=== PATIENT | female | born 1970 | race Asian ===

== ENCOUNTER 2024-01-17 11:42 | Day surgery (SDC) | payer BC, SELFPAY ==
[2024-01-11 08:32] VITALS: BMI 19.4
[2024-01-17] VITALS (11 sets, daily range): BP systolic 121–193; BP diastolic 82–115; PULSE 79–102; RESP 13–21; TEMP 36.1–36.2; O2SAT 85–100; BMI 19.4
--- NOTE | 2024-01-17 | PATH_ITS ---
[facility] Accession Number: [id number] No. of containers..02 Tissue . 01 Material submitted: . PART A: ectocervix - ECTOCERVIX PART B: endocervix - ENDOCERVICAL TOP HAT . 01 Diagnosis: A. ECTOCERVIX, LEEP BIOPSY: High-grade squamous intraepithelial lesion/NELSON 2-3 is present in the 12 to 3, 6 to 9, and 9 to 12 o'clock quadrants with gland extension. Low-grade squamous intraepithelial lesion/NELSON-1 is present in the 3 to 6 and 6 to 9 o'clock quadrants. The apparent endocervical margin is negative for dysplasia. The apparent ectocervical margin is focally involved by low-grade squamous intraepithelial lession/NELSON-1 in the 9 to 12 and 3 to 6 o'clock quadrants and is involved by high-grade squamous intraepithelial lesion / NELSON-2 in the 9 to 12 and 12 to 3 o'clock quadrants; electrocautery artifact is present and focally obscures. . B. ENDOCERVICAL TOP HAT: Endocervical tissue; negative for significant atypia. [facility] 01/21/2024 1542 Local . 01 Comment: The biopsy results correlate with Pap smear [id number]. . 01 Electronically signed: . Ashley Salcedo MD, Pathologist NPI- [id number] . 01 Gross description: . A. Received in formalin with two patient identifiers and ectocervix, stitch at 12, is an oriented circular fragment of cervix with a suture designating 12 o'clock per the requisition (1.7 cm from 12-6, 1.5 cm from 3-9, and 1.0 cm thick). The ectocervix is bales to finely granular. The os is slit-like and measures 0.5 cm in diameter. The endocervical margin is inked orange while the remaining stromal margins are inked blue. The specimen is radially sectioned and submitted entirely as follows: A1: -. A2: -. A3: -. A4: 02-09. B. Received in formalin with two patient identifiers and endocervical top hat, is an unoriented circular fragment of cervix, 1.0 x 0.9 x 0.9 cm with no ectocervix identified. The os is slight-like and measures 0.6 cm in diameter. The concave surface is inked black and the convex surface is inked orange at the endocervical margin and green on the remaining convex surface. The specimen is radially sectioned and submitted entirely in sequential quadrants in B1-B4. ([id number]) /MRV 01/21/2024 1543 Local . 01 Pathologist provided ICD-10: N87.1, N87.0 . 01 CPT . 044002, [id number] Specimen Comment: A courtesy copy of this report has been sent to [facility] Pathology Performed at: [address] [address], [place], [place] [id number] MD Sundar Lima MD Phone: [phone]
[2024-01-17] MEDS: LACTATED RINGERS 1,000 ML 42 ML IV (12:27)
[2024-01-17] MEDS: ACETAMINOPHEN 325 MG TABLET 975 MG PO (12:29)
--- NOTE | 2024-01-17 12:31 | PM.GYNHP.1 ---
History of Present Illness History of Present Illness Narrative: Krishna Suero is a 53 year old nulliparous female with recent high grade abnormal pap (HSIL, 10/05/23). Patient was seen in office 10/25 and 11/01 for purposes of preoperative counseling and planning with recommendation for immediate excisional procedure (LEEP). Procedure was delayed until today due to patient needing to obtain health insurance. Pt denies changes in personal or family health history since time of last encounter. She affirms desire to proceed with procedure as scheduled today. Questions regarding anticipated postoperative course were answered. Entirety of interaction conducted with assistance of Mongolian interpreter for the deaf (see hand bulldozer for interpreter for the deaf #) [facility] Medical History (Updated 01/17/24 @ 12:35 by Stacy Ruiz MD) Hypertension HSIL on Pap smear of cervix Symptomatic menopausal or female climacteric states Postmenopausal bleeding Social History (System 09/28/23 @ 14:[address]) Smoking Status: Current every day smoker alcohol intake: never Meds Home Medications and Allergies Home Medications Medication Instructions Recorded Confirmed Type lisinopril 20 mg tablet 20 mg PO DAILY 01/17/24 01/17/24 History Allergies Allergy/AdvReac Type Severity Reaction Status Date / Time No Known Drug Allergies Allergy Verified 01/17/24 12:03 Review of Systems Review of Systems ROS: Yes All systems reviewed with the patient and are negative except as otherwise documented Exam Vital Signs (past 8 hours): - 01/17/24 12:15 Temperature 97.1 F L Pulse Rate 83 Respiratory Rate 17 Blood Pressure 193/106 H Pulse Oximetry 100 Oxygen Delivery Method Room Air Oxygen Delivery Method Room Air Const General: cooperative and comfortable Nutritional Appearance: average body habitus and thin Orientation: alert, awake and oriented x3 Limitations: mental status not altered HENMT Head: normal to inspection Eyes General: appearance normal, both eyes and all related structures Neck Neck: normal visual inspection Resp Effort & Inspection: normal respiratory effort Cardio Pulses: normal peripheral pulses Other: deferred Skin General: no rashes or lesions noted Neuro General: patient alert and patient awake Extrem General: normal to inspection Psych Mental Status: mental status grossly normal Judgment: judgment good Assessment & Plan Assessment and plan (1) HSIL on Pap smear of cervix: Status: Acute (2) Hypertension: Qualifiers: Hypertension type: primary hypertension Qualified Code(s): I10 - Essential (primary) hypertension Status: Acute Plan 53yo nulliparous female presents for scheduled indicated LEEP secondary to personal h/o HSIL pap HSIL pap pt affirms desire to proceed with procedure as scheduled OR consent updated, originally signed 10/26/23 Essential hypertension asymptomatic exacerbation, pt did not notify provider of daily medication and self-withheld this AM (20mg PO lisinopril) anesthesia aware dispo: to OR Time-Based Coding :: 30] spent with patient and on the chart (including review of chart, obtaining history, exam, reviewing outside data, placing orders, documenting exam and treatment plan, and counseling patient) on 01/17/24
--- NOTE | 2024-01-17 12:37 | PM.PREOP ---
Pre-operative Note Interval Note History & Physical reviewed/Exam performed by Physician: Yes Changes to H&P: No H&P completed within 30 days and has changed as indicated here:: 10/26/23, 01/17/24 ASA Class (for procedural sedation): II
--- NOTE | 2024-01-17 12:46 | SUR.OPER ---
Lithotomy on padded OR bed, head on pillow, arms secured on padded arm boards at <90 degrees abduction. Legs secured in padded yellow fins stirrups.
[2024-01-17] MEDS: ACETIC ACID 500 ML IRRIG 20 ML TOP (13:11)
[2024-01-17] MEDS: BUPIVACAINE 0.25% (PF) 30 ML, EPINEPHrine 0.15 MG INJ (13:16)
[2024-01-17] MEDS: FERRIC SUBSULFATE 8 ML SOLUTION TOP (13:22)
--- NOTE | 2024-01-17 13:27 | PM.OP.1 ---
Operative Date/Time/Diagnoses Date of procedure: 01/17/24 Time of procedure: 13:28 Pre-op diagnosis: HSIL Post-op diagnosis: same Procedure & Clinicians Procedure: LEEP Same procedure as scheduled: Yes Indications: HSIL pap Surgeon: Stacy Ruiz Click Yes if Unassisted: Yes Anesthesia Type: General Operative Notes Findings: nulliparous cervix, diffuse acetowhite change with noted punctations 9-3 o'clock Closure Type: not applicable Specimen(s): other (1) ectocervix, stitch at 12 o'clock; 2) endocervical top hat) Estimated Blood Loss (mL): 5 Procedure in detail: Pt was taken to the operating room, transferred to OR table and anesthesia was induced with placement of LMA. Pt had her legs placed in Eduardo stirrups and an exam under anesthesia was performed. The patient was prepped and draped in a sterile fashion.? A time out was performed.? The bladder was emptied via straight catheter in sterile fashion.? A sterile insulated speculum was inserted into the vagina.? The cervix was visualized and grasped anteriorly using an insulated single tooth tenaculum.? Acetic acid was applied copiously to the cervix with delineation of described areas of acetowhite change. The ectocervical stroma was circumferentially infiltrated with 0.5% lidocaine with epinephrine for local analgesia and hemostasis followed by administration of paracervical block in standard fashion.?? The large electrocautery loop was selected and the ectocervical areas of acetowhite change were resected.? Additional endocervical top hat resected in the same fashion followed by generous application of rollerball cautery along the entirety of the wound bed.?? The tenaculum was removed and hemostasis was noted at insertion sites.? Monsel?s solution was applied generously and the speculum was removed.? The patient then had her legs taken out of stirrups.? The patient tolerated the procedure well and without difficulty.? The patient was awakened from anesthesia and taken to PACU in stable condition. Complications: none Post-operative Condition: stable Disposition: PACU Plan for aftercare: dc to home, routine postop f/u in office as scheduled
--- NOTE | 2024-01-17 13:54 | SUR.PHASEI ---
See new order for IV Toradol for pain from Dr Ruiz
[2024-01-17] MEDS: KETOROLAC 30 MG/ML VIAL IV (14:03)
[2024-01-17] MEDS: OXYCODONE IR 5 MG TABLET PO (14:24)
[2024-01-17] MEDS: ONDANSETRON 4 MG ODT SL (15:29)
== END 2024-01-17 15:40 | disposition home or self-care (01) ==
PROVIDERS: PCP Physician Assistant; Referring Provider Obstetrics & Gynecology; Visit Provider Obstetrics & Gynecology
PROC: 0UBC7ZZ Excision of Cervix, Via Natural or Artificial Opening (ICD-10-PCS; CPT 57522; principal; 2024-01-17 13:30)
DX: N95.0 Postmenopausal bleeding (principal); N87.1 Moderate cervical dysplasia; N87.0 Mild cervical dysplasia
CPT/HCPCS: 57522; A9270; J0171; J1100; J1885; J2405; J2704; J3010

== ENCOUNTER → 2024-01-19 09:45 | Outpatient (CLI) | payer BC, SELFPAY ==
[2024-01-19 10:39] LABS: Add Manual Diff / Slide Review NO; Basophils Absolute Auto 0 /uL (0-100); Basophils Percent Auto 0.4 % (0-2); Eosinophils Absolute Auto 100 /uL (0-450); Eosinophils Percent Auto 0.7 % (2-4); Hemoglobin 13.6 g/dL (12.0-16.0); Lymphocytes Absolute Auto 2800 /uL (1100-4500); Lymphocytes Percent Auto 25.3 % (25-40); Mean Corpuscular HGB Conc 33.1 % (30-36); Mean Corpuscular Hemoglobin 29.2 PG (26-34); Mean Corpuscular Volume 88.2 fL (80-100); Monocytes Absolute Auto 900 /uL (0-900); Monocytes Percent Auto 8.1 % (3-14); Neutrophils Absolute Auto 7100 /uL (1500-7000); Neutrophils Percent Auto 65.5 % (50-75); Platelet Count 326 X10^3/uL (150-400); Red Blood Cell Count 4.65 X10^6/uL (4.0-5.2); Red Cell Distribution Width 14.5 % (11.6-14.8); White Blood Cell Count 10.9 X10^3/uL (4.5-11.0)
[2024-01-19 11:00] LABS: Alanine Aminotransferase 19 IU/L (<35); Albumin 4.1 g/dL (3.5-5.0); Albumin Globulin Ratio 1.5 (1.0-2.8); Alkaline Phosphatase 120 U/L (38-126); Aspartate Aminotransferase 24 IU/L (14-36); BUN Creatinine Ratio 23.3 (6-22); Bilirubin Total 0.6 mg/dL (0.2-1.3); Blood Urea Nitrogen 14 mg/dL (7-17); Calcium 9.3 mg/dL (8.4-10.2); Carbon Dioxide 27 mmol/L (22-32); Chloride 103 mmol/L (98-107); Cholesterol 215 mg/dL (140-199); Estimated Glomerular Filt Rate > 60 mL/min (>60); Globulin 2.8 g/dL (1.7-4.1); Glucose 108 mg/dL (70-100); HDL Cholesterol 79 mg/dL (40-60); HEMOLYSIS < 15 (0-50); LDL Cholesterol Calculated 105 mg/dL (<100); Sodium 138 mmol/L (137-145); Total Protein 6.9 g/dL (6.3-8.2); Triglycerides 154 mg/dL (35-150)
[2024-01-19 20:25] LABS: Hemoglobin A1C% w Est Avg Glu 6.6 % (4.0-6.0)
== END ==
PROVIDERS: PCP Family Medicine; Referring Provider Family Medicine; Visit Provider Family Medicine
DX: I10 Essential (primary) hypertension (principal); Z13.1 Encounter for screening for diabetes mellitus; Z83.3 Family history of diabetes mellitus
CPT/HCPCS: 36415; 80053; 80061; 83036; 85025

== ENCOUNTER → 2024-03-22 15:09 | Outpatient (CLI) | payer BC, SELFPAY | LOC: CAR 15:10 | PROVIDERS: PCP Family Medicine; Referring Provider Family Medicine; Visit Provider Family Medicine | DX: R00.0 Tachycardia, unspecified (principal); R00.2 Palpitations; R06.02 Shortness of breath; R07.9 Chest pain, unspecified; E78.00 Pure hypercholesterolemia, unspecified; R06.01 Orthopnea; I10 Essential (primary) hypertension | CPT/HCPCS: 93242 ==

== ENCOUNTER → 2024-12-13 13:24 | Outpatient (CLI) | payer BC, SELFPAY ==
[2024-12-13 13:44] LABS: Add Manual Diff / Slide Review NO; Hematocrit 41.9 % (36-46); Hemoglobin 13.7 g/dL (12.0-16.0); Lymphocytes Absolute Auto 2100 /uL (1100-4500); Mean Corpuscular HGB Conc 32.7 % (30-36); Mean Corpuscular Hemoglobin 29.7 PG (26-34); Mean Corpuscular Volume 90.7 fL (80-100); Platelet Count 325 X10^3/uL (150-400)
[2024-12-13 13:51] LABS: Hemoglobin A1C% w Est Avg Glu 6.5 % (4.0-6.0)
[2024-12-13 13:59] LABS: Alanine Aminotransferase 17 IU/L (<35); Albumin 4.7 g/dL (3.5-5.0); Albumin Globulin Ratio 1.7 (1.0-2.8); Alkaline Phosphatase 120 U/L (38-126); Blood Urea Nitrogen 20 mg/dL (7-17); Calcium 9.6 mg/dL (8.4-10.2); Carbon Dioxide 28 mmol/L (22-32); Chloride 103 mmol/L (98-107); Cholesterol 181 mg/dL (140-199); Estimated Glomerular Filt Rate > 60 mL/min (>60); Globulin 2.8 g/dL (1.7-4.1); Glucose 105 mg/dL (70-99); HDL Cholesterol 66 mg/dL (40-60); HEMOLYSIS < 15 (0-50); Potassium 4.6 mmol/L (3.4-5.1); Sodium 138 mmol/L (137-145); Total Protein 7.5 g/dL (6.3-8.2); Triglycerides 108 mg/dL (35-150)
== END ==
PROVIDERS: PCP Family Medicine; Referring Provider Family Medicine; Visit Provider Family Medicine
DX: E11.9 Type 2 diabetes mellitus without complications (principal); I10 Essential (primary) hypertension; F17.200 Nicotine dependence, unspecified, uncomplicated
CPT/HCPCS: 36415; 80053; 80061; 82043; 82570; 83036; 85025

== ENCOUNTER → 2025-02-06 08:26 | Outpatient (CLI) | payer BC, SELFPAY ==
--- NOTE | 2025-02-06 08:28 | DI.ECHO.S_ITS ---
[facility]+ [facility] : : [address] : : [place] : : [id number] : : Phone: [phone] Echocardiogram Report + + :Name: MICHAEL JACOB Study Date: 02/06/2025 Height: 61 in : :[facility] ReadingLocation: Weight: 106 lb : : Gender: Female BSA: 1.4 m2 : :: 1970 Age: 54 yrs BP: 151/96 mmHg: :Reason For Study: CHEST PAIN : :Ordering Physician: LEENA WINCHESTER Performed By: Chet Portillo : :Referring: LEENA WINCHESTER : + + Interpretation Summary - The left ventricular contractility is borderline. Estimated ejection fraction is approximately 50 to 55% with no segmental wall motion abnormalities. No LVH. Normal diastolic function. - The right ventricular contractility is normal. - All cardiac chambers are of normal size. - No significant valvular abnormalities. - No obvious intracardiac shunts. - No obvious masses or thrombi. - No hemodynamically significant pericardial effusion. - Low right-sided filling pressures. Conclusion: Low normal left ventricular systolic function with no significant valvular abnormalities. Procedure: A two-dimensional transthoracic echocardiogram with color flow and Doppler was performed. The study quality was technically good. There is no prior echocardiogram noted for this patient. The patient was in normal sinus rhythm during the exam. Left Ventricle: The left ventricle is normal in size. There is normal left ventricular wall thickness. There is no ventricular septal defect visualized. The ejection fraction is estimated to be 50-55%. Diastolic parameters suggest probable normal left ventricular diastolic function and normal filling pressures. Right Ventricle: The right ventricle is normal size. The right ventricular systolic function is normal. Atria: The left atrial size is normal. Right atrial size is normal. There is no Doppler evidence for an interatrial shunt. Mitral Valve: The mitral valve leaflets appear normal. There is no evidence of stenosis, fluttering, or prolapse. There is trace mitral regurgitation. Aortic Valve: The aortic valve is trileaflet. The aortic valve opens well. No aortic regurgitation is present. Tricuspid Valve: The tricuspid valve leaflets are thin and pliable. There is a trace or physiologic amount of tricuspid regurgitation. Pulmonic Valve: The pulmonic valve leaflets are thin and pliable; valve motion is normal. There is trace pulmonic regurgitation. Great Vessels: The aortic root is normal size. The dimensions of the ascending aorta are normal. The pulmonary artery is normal size. The IVC is of normal diameter and collapses greater than 50% with a sniff. This suggests a low right atrial pressure of 3 mm Hg. Pericardium/ Pleura There is no pericardial effusion. There is no pleural effusion. MMode/2D Measurements & Calculations LVIDd: 3.6 cm LVOT diam: 1.9 cm LVIDs: 2.7 cm Ao root diam: 2.9 cm FS: 25.5 % asc Aorta Diam: 3.0 cm EPSS: 0.68 cm Ao Arch Diam (Prox Trans): 1.4 cm IVSd: 0.99 cm LVPWd: 0.97 cm LV reilly. diameter/BSA (cm/m^2): 2.5 LV sys. diameter/BSA (cm/m^2): 1.9 LA A2 area: 14.5 cm2 RA long axis: 4.0 cm LA A4 area: 14.5 cm2 RA area: 12.7 cm2 LA length (vol): 4.7 cm RA vol: 34.1 ml LA vol: 37.9 ml RA : 23.6 ml/m2 LA vol index: 26.3 ml/m2 IVC diam: 1.8 cm RVD1 (basal): 2.8 cm RVD2 (mid): 2.1 cm TAPSE: 1.4 cm Doppler Measurements & Calculations Ao V2 max: 117.6 cm/sec LVOT Max Luis Alberto: 73.9 cm/sec Ao V2 mean: 95.9 cm/sec LV V1 max P.2 mmHg Ao max P.5 mmHg LV V1 VTI: 16.4 cm Ao mean P.8 mmHg ISHAN(I,D): 1.9 cm2 Ao V2 VTI: 25.2 cm ISHAN(V,D): 1.9 cm2 sev ratio: 0.65 ISHAN indexed to BSA (cm^2/m^2): 1.3 MV E max luis alberto: 60.2 cm/sec PA V2 max: 71.0 cm/sec MV A max luis alberto: 61.9 cm/sec PA V2 mean: 49.8 cm/sec MV E/A: 0.97 PA mean P.1 mmHg Med Peak E' Luis Alberto: 5.7 cm/sec PA pr(Accel): 41.3 mmHg E/E' med: 10.6 Lat Peak E' Luis Alberto: 8.2 cm/sec E/E' lat: 7.4 E/e' average: 9.0 MV dec time: 0.20 sec SVLVOT): 48.9 ml Reading Physician:ISIS
--- NOTE | 2025-02-06 18:03 | DI.NM.S_ITS ---
DATE OF SERVICE: 02/06/2025 EXERCISE TREADMILL STRESS TEST PROCEDURE PERFORMED: Exercise treadmill stress test without imaging. ORDERING PROVIDER: Francisco Winchester MD. INDICATIONS: The patient is a 54-year-old female with palpitations, tachycardia, and atypical chest discomfort. FINDINGS: 1. The patient was able to exercise for 9 minutes on a standard Kimani protocol suggesting very good exercise capacity with an CHRISTINA of -19%, achieving 10.1 METS. 2. She had a mildly accelerated heart rate response to exercise with a resting heart rate of 78 bpm, increasing to 116 bpm after 2 minutes of exercise and achieving a maximum heart rate of 163 bpm (98% of her predicted maximum). She had a normal blood pressure response. 3. She had moderate dyspnea but no anginal chest discomfort or other anginal symptoms. 3. Her resting ECG shows sinus rhythm with normal ST segments but fairly flat T-waves. There are no significant ST-segment shifts with stress, but she develops slight, nonspecific inferolateral ST depression in late recovery. She had rare isolated PVCs, but no other arrhythmias. IMPRESSION: 1. Probable normal, low risk exercise treadmill stress test for ischemia with only mild, nonspecific ST shifts late in recovery. 2. Very good exercise capacity without angina. 3. She had a slightly accelerated heart rate response to exercise but no arrhythmias except for rare isolated PVCs. Krishna Suero - SUSANNE/doretha/MARKELL doc#: [id number]/job#: [id number] dd: 02/06/2025 17:11:00 dt: 02/06/2025 17:50:00 DICTATING MD/COPIES TO: Chris Weaver MD; Francisco Winchester MD COPIES MNE: ANUJA;
== END ==
LOC: NUCM 08:27
PROVIDERS: PCP Family Medicine; Referring Provider Internal Medicine; Visit Provider Internal Medicine
DX: R07.9 Chest pain, unspecified (principal); R00.0 Tachycardia, unspecified; R00.2 Palpitations; R06.02 Shortness of breath; I10 Essential (primary) hypertension; R06.01 Orthopnea; E78.00 Pure hypercholesterolemia, unspecified
CPT/HCPCS: 93017; 93306